=== PATIENT | male | born 1960 | race African-American/Black ===

== ENCOUNTER 2018-06-29 07:25 | Inpatient (IN) | payer OTHER ==
[~2018-06-29] VITALS: Ht 185.4 cm; Wt 121.7 kg
[2018-06-29] VITALS (10 sets, daily range): BP systolic 120–153; BP diastolic 71–100
[~2018-06-29 07:25] MED LIST: AMITRIPTYLINE H25 MG ORAL; HYDROCHLOROTHIA25 MG ORAL; LOSARTAN POTASS25 MG ORAL; LYRICA75 M1 ORAL; OXYCONTIN20 MG ORAL; PERCOCET 10-321 EACH ORAL
--- NOTE | 2018-06-29 08:10 | Pre-Procedure Note/Attestation ---
Pre-Procedure Note/Attestation Complete Prior to Procedure Procedure Narrative: c567 acdf with partial corpectomies Indications for Procedure Pre-Operative Diagnosis: cervical discopathy with myelopathy Attestation I attest that I discussed the nature of the procedure; its benefits; risks and complications; and alternatives (and the risks and benefits of such alternatives ), prior to the procedure, with the patient (or the patient's legal business services representative). I attest that, if there was a reasonable possibility of needing a blood transfusion, the patient (or the patient's legal business services representative) was given the [facility] standardized written summary, pursuant to the Camilo Yeimy Blood Safety Act ([place] Health and Safety Code # 1645, as amended). I attest that I re-evaluated the patient just prior to the surgery and that there has been no change in the patient's H&P, except as documented below: Isaiah Velasco MD Jun 29, 2018 08:10
[2018-06-29] MEDS ORDERED: LIPITOR40 MG ORAL (08:42)
[2018-06-29] MEDS ORDERED: QUETIAPINE FUMA25 MG ORAL (08:43)
[2018-06-29] MEDS ORDERED: MIRTAZAPINE30 MG ORAL (08:44)
[2018-06-29] MEDS ORDERED: WELLBUTRIN XL150 MG ORAL (08:44)
[2018-06-29] MEDS ORDERED: ALBUTEROL SULF8.5 GM INH (08:45)
[2018-06-29] MEDS ORDERED: LR 1000ml 1,000 ML IVLG SCH (10:18)
--- NOTE | 2018-06-29 10:18 | Anethesia Preoperative Eval ---
Anesthesia Pre-op PMH/ROS General Date of Evaluation: Jun 29, 2018 Anesthesiologist: Liang ASA Score: ASA 3 Mallampati Score Class I : Soft palate, uvula, fauces, pillars visible Class II: Soft palate, uvula, fauces visible Class III: Soft palate, base of uvula visible Class IV: Only hard plate visible Mallampati Classification: Class III Surgeon: Rod Diagnosis: Cervical radiculopathy Surgical Procedure: ACDF wtih partial corpectomy C5-6, C6-7 Anesthesia History: none Family History: no anesthesia problems Allergies: Coded Allergies: ACETAMINOPHEN (Verified Allergy, Severe, rash, 06/28/18) AMOXICILLIN (Verified Allergy, Severe, rash, 06/28/18) BACITRACIN (Verified Allergy, Severe, rash, 06/28/18) CODEINE (Verified Allergy, Severe, rash, 06/28/18) HYDROCODONE (Verified Allergy, Severe, rash, 06/28/18) NEOMYCIN (Verified Allergy, Severe, rash, 06/28/18) PENICILLINS (Verified Allergy, Severe, rash, 06/28/18) POLYMYXIN B (Verified Allergy, Severe, rash, 06/28/18) Medications: see eMAR Past Medical History Cardiovascular: Reports: HTN, other - HLD; Denies: CAD, NV, valve dz, arrhythmia Pulmonary: Reports: asthma; Denies: COPD, SNEHA, other Gastrointestinal/Genitourinary: Reports: other - BPH; Denies: GERD, CRI, ESRD Neurologic/Psychiatric: Reports: depression/anxiety, other - SCI; Denies: dementia, CVA, TIA Endocrine: Denies: DM, hypothyroidism, steroids, other HEENT: Denies: cataract (L), cataract (R), glaucoma, QAGAN TAYAGUNGIN (L), QAGAN TAYAGUNGIN (R), other Hematology/Immune: Denies: anemia, DVT, bleeding disorder, other Musculoskeletal/Integumentary: Denies: OA, RA, DJD, DDD, edema, other Other: obesity PSxH Narrative: lumbar sx X2 Anesthesia Pre-op Phys. Exam Physician Exam Last Vital Signs Date Time Temp Pulse Resp B/P (MAP) Pulse Ox O2 Delivery O2 Flow Rate FiO2 06/29/18 08:23 Room Air 06/29/18 08:22 98.0 88 20 144/86 (105) 96 98.0 Constitutional: NAD Cardiovascular: RRR Respiratory: CTA Airway Exam Mallampati Score: Class III MO: full ROM: limited Teeth: intact Anesthesia Pre-op A/P Labs see chart Studies Pre-op Studies: EKG - sr Risk Assessment & Plan Assessment: ASA III Plan: GA Status Change Before Surgery: No Pre-Antibiotics Drug: Clindamycin 600mg Given Within 1 Hr of Incision: Yes Nicole Fernandez MD Jun 29, 2018 10:18
[2018-06-29] MEDS ORDERED: Labetalol 5mg/ml 20ml vial IV PRN (10:30)
[2018-06-29] MEDS ORDERED: LORazepam Inj 2mg/ml 1ml IV PRN (10:30)
[2018-06-29] MEDS ORDERED: Metoclopramide 10mg/2ml Inj IVP PRN ×2 (10:30→15:15)
[2018-06-29] MEDS ORDERED: Midazolam 2mg/2ml Inj IVP PRN (10:30)
[2018-06-29] MEDS ORDERED: DiphenhydrAMINE 50mg/ml Inj IVP PRN (10:30)
[2018-06-29] MEDS ORDERED: fentaNYL 100 mcg/2 mL IV PRN (10:30)
[2018-06-29] MEDS ORDERED: Thrombin 5000 units spray kit TOPIC ONE (11:31)
[2018-06-29] MEDS ORDERED: Thrombin 5000 units TOPIC ONE (11:31)
[2018-06-29] MEDS ORDERED: EPINEPHrine 1mg/1ml Amp ONE (11:31)
[2018-06-29] MEDS ORDERED: Bupivacaine 0.5% Inj 30 ml vial INJ ONE (11:32)
[2018-06-29] MEDS ORDERED: Gelfoam Absorbable 1gm powder pkt TOPIC ONE (11:32)
[2018-06-29] MEDS ORDERED: Lidocaine 1% 10mg/ml/Epi 0.005mg/ml 30ml vial INJ ONE (11:33)
[2018-06-29] MEDS ORDERED: Bacitracin 50000 Units Vial ONE (11:33)
[2018-06-29] MEDS ORDERED: Gelfoam Size TOPIC ONE ×2 (11:33→15:45)
[2018-06-29] MEDS ORDERED: Clindamycin 600mg 50 ML IV ONE (11:45)
[2018-06-29] MEDS ORDERED: Lidocaine 1% MPF 10mg/ml 5ml ONE (11:48)
[2018-06-29] MEDS ORDERED: Propofol 200mg/20ml IV ONE ×2 (11:48→15:05)
[2018-06-29] MEDS ORDERED: fentaNYL 100 mcg/2 mL IV ONE ×2 (11:48→11:49)
[2018-06-29] MEDS ORDERED: Dexamethasone 4mg/ml vial ONE (11:56)
[2018-06-29] MEDS ORDERED: Metoclopramide 10mg/2ml Inj ONE (11:56)
[2018-06-29] MEDS ORDERED: NS Irrig 1000ml ONE (12:00)
[2018-06-29] MEDS ORDERED: Propofol 1,000mg/ 100ml btl IV ONE (12:00)
[2018-06-29] MEDS ORDERED: Sterile Water Irrig 1000ml IRRIG ONE (12:00)
[2018-06-29] MEDS ORDERED: LR 1000ml ONE (12:00)
[2018-06-29] MEDS ORDERED: Milk of Magnesia 30ml Ud ORAL PRN ×2 (15:15→19:30)
--- NOTE | 2018-06-29 15:24 | Brief Operative Note ---
Immediate Post Operative Note Operative Note Pre-op Diagnosis: cervical discopathy with myelopathy Procedure: C567 acdf, c6 partial corpectomy Post-op Diagnosis: same as pre-op Findings: consistent w/pre-op dx studies Surgeon: dada Insulation Applicator: keo Anesthesiologist: claire newberry Anesthesia: general Specimen: none Complications: none Condition: stable Fluids: 2000 Estimated Blood Loss: minimal Drains: hemovac Implant(s) used?: Yes - 4 web cage and shelby plate Isaiah Velasco MD Jun 29, 2018 15:24
--- NOTE | 2018-06-29 15:45 | Immediate Post-Op Evaluation ---
Immediate Post-Op Evalulation Immediate Post-Op Evalulation Procedure: ACDF with partial corpectomy C5-7 Date of Evaluation: Jun 29, 2018 Time of Evaluation: 15:43 IV Fluids: 2L Blood Products: 0 Estimated Blood Loss: min Urinary Output: 300 Blood Pressure Systolic: 120 Blood Pressure Diastolic: 77 Pulse Rate: 91 Respiratory Rate: 17 O2 Sat by Pulse Oximetry: 99 Temperature (Fahrenheit): 97.3 Pain Score (1-10): 0 Nausea: No Vomiting: No Complications 0 Patient Status: awake, reacts, patent, none Hydration Status: adequate Drug: Clindamycin 600mg Given Within 1 Hr of Incision: Yes Time Given: 12:15 Nicole Fernandez MD Jun 29, 2018 15:45
--- NOTE | 2018-06-29 17:07 | Diagnostic Imaging Report ---
Indication: Intraoperative imaging, neck pain Technique: Intraoperative images Comparison: 07/15/2016 Findings: Intraoperative images demonstrate a needle projected anterior to what is presumably the C6-7 disc. Subsequent images document fusion hardware and disc spacers bridging C5-C7 Impression: Intraoperative imaging, as described.
[2018-06-29] MEDS: Docusate 100mg cap ORAL SCH ×2 (18:00→18:30)
[2018-06-29] MEDS: D5 1/2NS 1,000 ML IV SCH ×2 (18:26→23:30)
[2018-06-29] MEDS: Clindamycin 600mg 50 ML IV SCH ×2 (18:28→23:30)
[2018-06-29] MEDS ORDERED: Chloraseptic Spray 20mL Bottle ORAL ONE (19:16)
[2018-06-29] MEDS ORDERED: oxyCODONE 5mg IR tab ORAL PRN (19:30)
[2018-06-29] MEDS ORDERED: Chloraseptic Spray 20mL Bottle ORAL PRN (19:30)
[2018-06-29] MEDS ORDERED: Magnesium Citrate Liq Btl ORAL PRN ×2 (19:30→19:45)
[2018-06-29] MEDS ORDERED: Albuterol 90mcg Inhaler 8gm INH PRN (20:00)
[2018-06-29] MEDS: Atorvastatin 20mg tab ORAL SCH (20:03)
[2018-06-29] MEDS: Losartan 25mg tab ORAL SCH (20:11)
[2018-06-29] MEDS: HYDROmorphone 1mg/ml Carpuject SUBQ PRN (20:11)
[2018-06-29] MEDS: oxyCONTIN 10mg tab ORAL SCH (21:26)
[2018-06-30] VITALS: BP 144/97
[2018-06-30] MEDS ORDERED: Albuterol ud Inhalation HHN PRN (01:00)
[2018-06-30] MEDS: oxyCODONE 15mg IR tab ORAL PRN ×2 (01:46→06:30)
[2018-06-30] MEDS: HYDROmorphone 1mg/ml Carpuject SUBQ PRN ×5 (03:58→21:11)
[2018-06-30 04:00] VITALS: BP 119/73
[2018-06-30] MEDS: Clindamycin 600mg 50 ML IV SCH ×2 (05:07→11:37)
--- NOTE | 2018-06-30 05:17 | Consultation ---
DATE OF CONSULTATION: 06/29/2018 CONSULTING PHYSICIAN: Rafita Tejeda M.D. REFERRING PHYSICIAN: Isaiah Velasco M.D. REASON FOR CONSULTATION: Acute pain consult. HISTORY OF PRESENT ILLNESS: Dear Dr. Isaiah Velasco, Thank you kindly for consulting me to evaluate and render an opinion as to how to proceed in the management of the patient's acute postoperative multiple level cervical spine fusion surgery pain. The patient is a 58-year-old gentleman who injured his neck while working at the [employer]. He has had a work injury for nearly five years and has been on escalating doses of oxycodone with his outpatient pain doctor, Dr. Sanchez in [place], [place], with whom he sees monthly. The patient has been using 10 Percocets daily for many years and with his chronic opioid dependence, complained of severe pain postoperatively. I saw the patient on your request to help with the patient's opioid dependent refractory pain complaints. PAST MEDICAL HISTORY: 1. Acute postoperative cervical spine pain, status post cervical spine fusion surgery with instrumentation by Dr. Isaiah Velasco in 06/2018. 2. Work-related injury. 3. Opioid dependence. 4. Chronic pain syndrome. 5. Severe insomnia. 6. Hypertension. 7. Hypercholesterolemia. 8. Depression. 9. Obesity. PAST SURGICAL HISTORY: Multiple lumbar spine surgeries, posterior cervical spine surgery in 07/[address] Isaiah Velasco. MEDICATIONS: At home, Percocet 10/325 mg two tablets at a time five times per day, Elavil 25 mg daily, albuterol, Remeron, Seroquel, losartan 50 mg daily, Wellbutrin extended release 150 mg daily, and Lipitor. FAMILY HISTORY: Suicide by oldest brother. SOCIAL HISTORY: The patient works at the [employer]. The patient denies tobacco, alcohol, or marijuana usage. He is accompanied at the bedside by his daughter and his . REVIEW OF SYSTEMS: Per Dr. Bobby Pantoja. PHYSICAL EXAMINATION: HEENT: Alex collar in place. NECK: Dressing appears clean and dry with Hemovac drain holding suction. LUNGS: The patient is breathing comfortably with no accessory muscle use. The patient appears non-toxic. EXTREMITIES: Moving all extremities x4 with 5/5 dorsiflexion and 5/5 plantar flexion in the bilateral lower extremities. NEUROLOGIC: Detailed neurologic exam per Dr. Velasco. CHEST: Barrel chested. HEART: Regular rate and rhythm. Positive S4. Normal S1, S2. No S3 appreciated. ABDOMEN: Positive obesity. Positive bowel sounds. No rebound or guarding. GENITOURINARY: Deferred. LABORATORY AND DIAGNOSTIC DATA: Diagnostic testing shows glucose 102, sodium 138, potassium 3.9, chloride 105, bicarbonate 26, BUN 12, creatinine 1.2, and calcium 9.2. Total protein 7.3, albumin 4.1. AST 24, ALT 22, alkaline phosphatase 87, and total bilirubin 0.7. TSH 1.7. Glycosylated hemoglobin high normal at 6.4. White count 5, hematocrit 41, and platelets 235,000. INR 1.2, PTT 25. A 12-lead EKG shows sinus rhythm at 67 heart rate. Preoperative chest x-ray shows no acute cardiopulmonary disease. IMPRESSION: 1. Acute postoperative cervical spine pain, status post cervical spine fusion surgery with instrumentation by Dr. Isaiah Velasco in 06/2018. 2. Work-related injury. 3. Opioid dependence. 4. Chronic pain syndrome. 5. Severe insomnia. 6. Hypertension. 7. Hypercholesterolemia. 8. Depression. 9. Obesity. TREATMENT AND RECOMMENDATIONS: The patient is opioid dependent. He has been on high-dose oxycodone for many years. The patient follows up with Dr. Sanchez in [place], [place] on a monthly basis. With the patient's chronic usage of 10 Percocet tablets daily, I did recommend that the patient ask his outpatient pain doctor to switch him over to oxycodone to avoid the chronic high doses of Tylenol, which he has been taking. The states that Dr. Sanchez has been discussing using OxyContin on this patient, which I agree is appropriate with his chronic oxycodone instant release usage. The patient does have multiple allergies, but with good tolerance for oxycodone, I believe he should be able to tolerate extended release OxyContin, which I will start with 10 mg this evening. I spoke with the hospital pharmacist, Kerrie, to initiate this medication. In the hospital setting, we have the opportunity to use oxycodone without Tylenol, so I have ordered oxycodone instant release because the patient has been using 20 mg chronically. I have selected a dose of 30 mg instant release orally every three hours p.r.n. for moderate pain. I also ordered a breakthrough dose of subcutaneous Dilaudid 1 mg every three hours p.r.n. for severe pain. Due to his obesity, I recommended subcutaneous route, which also should have less emetogenic effect. I have asked the nursing team to place Chloraseptic spray at the bedside to help with sore throat complaints. I have ordered Fioricet for any headache complaints at a dose of one tablet orally every eight hours p.r.n. The patient has listed multiple insomnia agents including Elavil, Seroquel. I have changed it over to p.r.n. to avoid oversedation. The patient does probably use losartan for blood pressure. I have split the dose to a twice a day dosing with hold parameters for systolic blood pressure less than 130 mmHg. I have also added p.r.n. dose of clonidine until the hospitalist can adjust his hypertensive medications. The patient denies any shortness of breath at this time. I have ordered q.6 hour dosing of albuterol nebulizer in case of any shortness of breath complaints. I have ordered Benadryl 25 mg every six hours in case of any itching complaints. I have ordered Zofran as a rescue antiemetic at a dose of 4 mg every four hours p.r.n. I will empirically place the patient on Protonix 40 mg nightly for GI ulcer prophylaxis along with p.r.n. dose of Mylanta 30 mL q.6 hours in case of any GERD symptom exacerbation. I have ordered incentive spirometer in this patient to encourage good pulmonary toilet. I will defer DVT prophylaxis to the surgeon. Rafita Tejeda M.D. DR: SANDY JOB#: [id number] CC:
[2018-06-30 08:00] VITALS: BP 119/74
[2018-06-30] MEDS: BuPROPion XL 150mg tab ORAL SCH (08:32)
[2018-06-30] MEDS: Docusate 100mg cap ORAL SCH ×2 (08:32→17:38)
[2018-06-30] MEDS: oxyCONTIN 10mg tab ORAL SCH ×3 (08:33→22:15)
--- NOTE | 2018-06-30 08:45 | Orthopedic Spine Progress Note ---
Ortho Spine - Progress Note Subjective Symptoms: c/o post-op neck pain, improved - as compared to pre-op in arms, but same in legs Objective Vital Signs: Last 24 Hour Vital Signs Date Time Temp Pulse Resp B/P (MAP) Pulse Ox O2 Delivery O2 Flow Rate FiO2 06/30/18 08:33 98.1 06/30/18 08:33 98.1 06/30/18 04:00 98.1 84 18 119/73 (88) 93 98.1 06/30/18 00:00 98.8 96 18 144/97 (113) 94 98.8 06/29/18 21:00 Room Air 06/29/18 20:11 142/87 06/29/18 20:00 100.3 109 18 153/100 (117) 95 100.3 06/29/18 16:56 98.5 06/29/18 16:55 98.5 88 18 142/87 100 Nasal Cannula 3 98.5 06/29/18 16:40 95 18 137/88 100 Nasal Cannula 3 06/29/18 16:26 86 18 142/98 100 Nasal Cannula 3 06/29/18 16:26 98.0 06/29/18 16:15 92 18 144/81 100 Simple Mask 8 06/29/18 16:00 97 18 138/71 100 Simple Mask 8 06/29/18 15:48 97 18 123/82 100 Simple Mask 8 06/29/18 15:45 207.1 91 17 99 06/29/18 15:43 91 18 124/78 100 Simple Mask 8 06/29/18 15:38 97.3 91 18 120/77 100 Simple Mask 8 97.3 I&O: Intake and Output 06/29/18 06/30/18 19:00 07:00 Intake Total 2400 ml 1700 ml Output Total 300 ml 0 ml Balance 2100 ml 1700 ml Intake Oral 600 ml IV Total 2400 ml 1100 ml Output Urine Total 300 ml Drainage Total 0 ml # Voids 1 3 Wound: clean Drains: hemovac Neuro Status: unchanged from pre-op Assessment Procedure Performed: C567 acdf, c6 partial corpectomy Plan Plan: PT, d/c drain, discharge plan Isaiah Velasco MD Jun 30, 2018 08:45
[2018-06-30] MEDS: Losartan 25mg tab ORAL SCH ×2 (09:00→21:00)
--- NOTE | 2018-06-30 09:37 | 48 Hour Post Anesthesia Eval ---
Post Anesthesia Evaluation Procedure: ACDF with partial corpectomy C5-7 Date of Evaluation: Jun 30, 2018 Airway: patent Nausea: No Vomiting: No Pain Intensity: 2 Hydration Status: adequate Cardiopulmonary Status: at baseline Mental Status/LOC: patient returned to baseline Post-Anesthesia Complications: 0 Follow-up care needed: N/A - further care as per primary team Nicole Fernandez MD Jun 30, 2018 09:37
[2018-06-30] MEDS: D5 1/2NS 1,000 ML IV SCH (11:15)
--- NOTE | 2018-06-30 11:45 | History and Physical ---
History of Present Illness General Date patient seen: Jun 30, 2018 Present Illness HPI 58 year old male with hx of depression, hypertension, asthma, and cervical discopathy with myelopathy presented for C567 acdf, c6 partial corpectomy. After surgery she is admitted to surgical floor for post op care. Allergies: Coded Allergies: ACETAMINOPHEN (Verified Allergy, Severe, rash, 06/28/18) AMOXICILLIN (Verified Allergy, Severe, rash, 06/28/18) BACITRACIN (Verified Allergy, Severe, rash, 06/28/18) CODEINE (Verified Allergy, Severe, rash, 06/28/18) HYDROCODONE (Verified Allergy, Severe, rash, 06/28/18) NEOMYCIN (Verified Allergy, Severe, rash, 06/28/18) PENICILLINS (Verified Allergy, Severe, rash, 06/28/18) POLYMYXIN B (Verified Allergy, Severe, rash, 06/28/18) Medication History Scheduled Amitriptyline Hcl* (Amitriptyline Hcl*), 75 MG ORAL BEDTIME, (Reported) Atorvastatin Calcium* (Lipitor*), 40 MG ORAL BEDTIME, (Reported) Bupropion Hcl* (Wellbutrin Xl*), 150 MG ORAL DAILY, (Reported) Losartan Potassium* (Losartan Potassium*), 50 MG ORAL DAILY, (Reported) Mirtazapine* (Remeron*), 30 MG ORAL BEDTIME, (Reported) Quetiapine Fumarate* (Seroquel*), 25 MG ORAL DAILY, (Reported) Scheduled PRN Albuterol Sulfate* (Albuterol Sulfate Mdi*), 2 PUFF INH PRN PRN for Shortness of Breath, (Reported) Miscellaneous Medications Oxycodone Hcl Er* (Oxycontin*), 20 MG ORAL, (Reported) Discontinued Medications Oxycodone Hcl/Acetaminophen 10-325 Mg Tablet (Percocet 10-325 Mg Tablet*), 1 TAB ORAL Q6H PRN for For Pain, (Reported) Discontinued Reason: MD discontinued med Patient History Healthcare decision maker Resuscitation status Full Code Advanced Directive on File n/a Past Medical/Surgical History Past Medical/Surgical History: (1) History of hypertension (2) Depression (3) History of asthma Review of Systems All Other Systems: negative except mentioned in HPI Physical Exam General Appearance: WD/WN Lines, tubes and drains: peripheral HEENT: normocephalic, atraumatic Neck: non-tender, normal alignment Respiratory/Chest: chest wall non-tender, lungs clear, no respiratory distress Cardiovascular/Chest: normal peripheral pulses Abdomen: normal bowel sounds Genitourinary/Rectal: normal genital exam Extremities: normal range of motion Last 24 Hour Vital Signs Date Time Temp Pulse Resp B/P (MAP) Pulse Ox O2 Delivery O2 Flow Rate FiO2 06/30/18 11:33 98.1 06/30/18 09:03 98.1 06/30/18 09:00 Room Air 06/30/18 09:00 118/74 06/30/18 08:33 98.1 06/30/18 08:33 98.1 06/30/18 08:00 98.5 81 21 119/74 (89) 96 98.5 06/30/18 04:00 98.1 84 18 119/73 (88) 93 98.1 06/30/18 00:00 98.8 96 18 144/97 (113) 94 98.8 06/29/18 21:00 Room Air 06/29/18 20:11 142/87 06/29/18 20:00 100.3 109 18 153/100 (117) 95 100.3 06/29/18 16:56 98.5 06/29/18 16:55 98.5 88 18 142/87 100 Nasal Cannula 3 98.5 06/29/18 16:40 95 18 137/88 100 Nasal Cannula 3 06/29/18 16:26 86 18 142/98 100 Nasal Cannula 3 06/29/18 16:26 98.0 06/29/18 16:15 92 18 144/81 100 Simple Mask 8 06/29/18 16:00 97 18 138/71 100 Simple Mask 8 06/29/18 15:48 97 18 123/82 100 Simple Mask 8 06/29/18 15:45 207.1 91 17 99 06/29/18 15:43 91 18 124/78 100 Simple Mask 8 06/29/18 15:38 97.3 91 18 120/77 100 Simple Mask 8 97.3 Intake and Output 06/29/18 06/30/18 19:00 07:00 Intake Total 2400 ml 1700 ml Output Total 300 ml 0 ml Balance 2100 ml 1700 ml Intake Oral 600 ml IV Total 2400 ml 1100 ml Output Urine Total 300 ml Drainage Total 0 ml # Voids 1 3 Height (Feet): 6 Height (Inches): 1.00 Weight (Pounds): 268 Medications Current Medications Medications (Trade) Dose Ordered Sig/Bonnie Route PRN Reason Start Time Stop Time Status Last Admin Dose Admin Acetaminophen (Tylenol) 650 mg Q6H PRN ORAL Mild Pain/Temp > 100.5 06/29/18 20:00 07/29/18 19:59 Acetaminophen/ Butalbital/ Caffeine (Fioricet) 1 tab Q8H PRN ORAL headache 06/29/18 19:30 07/29/18 19:29 Al Hydroxide/Mg Hydroxide (Mylanta) 30 ml Q6H PRN ORAL gerd 06/29/18 19:30 07/29/18 19:29 Albuterol Sulfate (Proventil MDI) 2 puff Q4H PRN INH shortness of breath 06/29/18 20:00 07/29/18 19:59 Albuterol Sulfate (Proventil) 2.5 mg Q6HRT PRN HHN shortness of breath 06/30/18 01:00 07/05/18 00:59 Amitriptyline HCl (Elavil) 25 mg BEDTIME PRN ORAL insomnia 06/29/18 21:00 07/29/18 20:59 Atorvastatin Calcium (Lipitor) 40 mg BEDTIME ORAL 06/29/18 21:00 07/29/18 20:59 06/29/18 20:03 Atorvastatin Calcium (Lipitor) 40 mg BEDTIME ORAL 06/30/18 21:00 07/30/18 20:59 Bupropion HCl (Wellbutrin XL) 150 mg DAILY ORAL 06/30/18 09:00 07/30/18 08:59 06/30/18 08:32 Clindamycin HCl/ Dextrose 50 ml @ 50 mls/hr EVERY 6 HOURS IV 06/29/18 18:00 06/30/18 12:59 06/30/18 05:07 Clonidine HCl (Catapres Tab) 0.1 mg Q8H PRN ORAL For High Blood Pressure 06/29/18 19:30 07/29/18 19:29 Dextrose/Sodium Chloride 1,000 ml @ 100 mls/hr Q10H IV 06/29/18 15:15 07/29/18 15:14 06/29/18 23:30 Diphenhydramine HCl (Benadryl) 25 mg Q6H PRN ORAL Itching 06/29/18 19:30 07/29/18 19:29 Docusate Sodium (Colace) 100 mg TWICE A DAY ORAL 06/29/18 18:00 07/29/18 17:59 06/30/18 08:32 Hydromorphone HCl (Dilaudid) 1 mg Q3H PRN SUBQ Severe Breakthru Pain (>7) 06/29/18 19:30 07/06/18 19:29 06/30/18 11:33 Losartan Potassium (Cozaar) 25 mg Q12H ORAL 06/29/18 21:00 07/29/18 20:59 06/29/18 20:11 Magnesium Hydroxide (Mom) 30 ml DAILYPRN PRN ORAL Constipation 06/29/18 19:30 07/29/18 19:29 Magnesium Citrate (Citrate Of Magnesia) 300 ml Q12HR PRN ORAL refractory constipation 06/29/18 19:45 07/29/18 19:29 Mirtazapine (Remeron) 30 mg BEDTIME PRN ORAL severe insomnia 06/29/18 21:00 07/29/18 20:59 Ondansetron HCl (Zofran) 4 mg Q4H PRN IVP Nausea & Vomiting 06/29/18 19:30 07/29/18 19:29 Oxycodone HCl (OxyCONTIN) 10 mg Q12HR ORAL 06/29/18 21:00 07/06/18 20:59 06/30/18 08:33 Oxycodone HCl (Roxicodone) 30 mg Q3H PRN ORAL Moderate Breakthru Pain (5-7) 06/29/18 19:45 07/06/18 19:44 06/30/18 06:30 Pantoprazole (Protonix) 40 mg BEDTIME ORAL 06/29/18 21:00 07/29/18 20:59 06/29/18 20:03 Phenol/Menthol (Chloraseptic) 1 spray Q3H PRN ORAL sore throat 06/29/18 19:30 07/29/18 19:29 06/29/18 20:37 Quetiapine Fumarate (SEROquel) 25 mg BEDTIME PRN ORAL refractory insomnia 06/29/18 21:00 07/29/18 20:59 06/29/18 23:25 Terazosin HCl (Hytrin) 5 mg TID ORAL 06/30/18 13:00 07/30/18 12:59 Assessment/Plan Problem List: (1) Cervical myelopathy with cervical radiculopathy ICD Codes: M47.12 - Other spondylosis with myelopathy, cervical region SNOMED: 422852101 (2) Depression ICD Codes: F32.9 - Major depressive disorder, single episode, unspecified SNOMED: 43506324 (3) History of asthma ICD Codes: Z87.09 - Personal history of other diseases of the respiratory system SNOMED: 775479521 (4) History of hypertension ICD Codes: Z86.79 - Personal history of other diseases of the circulatory system SNOMED: 184194313 Assessment/Plan pain management symptomatic treatment resume antidepressants dvt prophylaxis/ Renan Hunt MD Jun 30, 2018 11:45
[2018-06-30 12:00] VITALS: BP 117/71
[2018-06-30] MEDS ORDERED: Chloraseptic Spray 20mL Bottle ORAL ONE (14:48)
[2018-06-30] MEDS: Chloraseptic Spray 20mL Bottle ORAL PRN (15:13)
[2018-06-30 16:00] VITALS: BP 134/95
[2018-06-30 20:00] VITALS: BP 117/76
[2018-06-30] MEDS ORDERED: Atorvastatin 20mg tab ORAL SCH (21:00)
[2018-06-30] MEDS ORDERED: Atorvastatin 80mg tab ORAL SCH (21:00)
[2018-06-30] MEDS: Atorvastatin 20mg tab ORAL SCH (21:10)
--- NOTE | 2018-06-30 22:30 | Progress Note ---
DATE: 06/30/2018 ACUTE PAIN MANAGEMENT PHYSICIAN PROGRESS NOTE MEDICATIONS: Medication administration record reviewed. Medications include Hytrin, Seroquel, Chloraseptic spray, Protonix, OxyContin, Zofran, Remeron, milk of magnesia, magnesium citrate, Cozaar, Dilaudid, Colace, Benadryl, Catapres, Wellbutrin, Lipitor, Elavil, Proventil, metered-dose inhaler, Mylanta, and Fioricet. LABORATORY STUDIES: No interval laboratory studies. OBJECTIVE: VITAL SIGNS: Afebrile, pulse 75, respirations 20, blood pressure 117/71, and oxygen saturation 94% on room air. I saw the patient at the bedside with his and the nurse RN, Roxie. Dr. Velasco, Surgery evaluated the patient earlier this morning and removed his indwelling cervical spine drain catheter. The patient has been out of bed ambulating. The patient is having improved sensation in his feet compared to preop. The patient has good motor strength in the upper extremities and has been ambulating out of bed with physical therapy. The Chloraseptic spray has been helpful. The patient did tolerate the oxycodone instant release 30 mg earlier this morning without oversedation. The patient did tolerate his OxyContin 10 mg earlier this morning. I spoke with the hospital pharmacist, Kerrie, to increase the frequency from q.12 hours to q.8 hours on the OxyContin 10 mg. We will see how the patient is progressing tomorrow to determine if he is a discharge candidate or needs another day in the hospital on these high dose opioid narcotics. Dr. Hunt is following the patient for medical issues. We will advance the patient's diet as tolerated. Rafita Tejeda M.D. DR: HEATHER JOB#: [id number] CC:
[2018-07-01 00:16] VITALS: BP 131/79
[2018-07-01] MEDS: HYDROmorphone 1mg/ml Carpuject SUBQ PRN (04:05)
[2018-07-01 04:31] VITALS: BP 133/85
--- NOTE | 2018-07-01 04:46 | Operative Note - Dictated ---
DATE OF OPERATION: 06/29/2018 SURGEON: Isaiah Velasco M.D. STAFF DEVELOPMENT NURSE SURGEON: Faheem Cotter M.D. ANESTHESIA: Nicole Tavera M.D. ANESTHESIA TYPE: General endotracheal anesthesia. 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 PROCEDURE: 1. Wide and radical diskectomy, C5-C6 and C6-C7. 2. Partial corpectomy, superior portion of C6 with removal of large bony prominence compressing the spinal cord. 3. Placement of interbody fusion device (4WEB). 4. Use of local autograft and allograft (Signafuse). 5. Anterior instrumentation with cervical plate, C5, C6, and C7. 6. Use of fluoroscopy. 7. Neurodiagnostic monitoring. 8. Use of operating microscope. INDICATIONS: The patient is a very pleasant gentleman who sustained a significant injury to his neck with progressive myeloradiculopathic findings as well as balance disturbance and weakness in the lower extremities primarily, but also weakness in the upper extremities. The patient did have manual dexterity loss of the upper extremities. Surgical intervention was recommended based on the severe nature of the compression, primarily at C5-C6 centrally as well as foraminally at C6-C7. The patient was explained in detail risks and benefits of surgery to include but not be limited to those of bleeding, infection, damage to nerves or vessels or tendons, anesthetic risk, allergic reaction, aspiration, possibly . The patient understood and wished to proceed. OPERATIVE PROCEDURE IN DETAIL: The patient was taken to the operating suite. After general endotracheal anesthesia was obtained, Ortiz catheter was placed. He was positioned supine onto a radiolucent table. Multiple passes with x-ray were attempted, however, very poor visualization could be obtained due to the patient's body habitus. We were able to count down to C5, however, the details of the interspace at C5-C6, C6-C7 could not be visualized. This made the surgery far more complicated as the procedure would have to then be done without benefit of fluoroscopic imaging for fine details of anatomic fixation, but rather for gross localization purposes only. At this point, an incision was marked out transversely at or about C6 on the right side of the neck. The neck was prepped and draped in the usual sterile fashion. Skin was infiltrated with Marcaine with epinephrine. The incision was sharply carried down through the subcutaneous tissue. Very large platysma was identified and this was split perpendicular to the fibers. Blunt dissection medial to the sternocleidomastoid was carried out. The carotid was palpated and medial dissection using digital dissection allowed for exposure of the prevertebral fascia. Self-retaining retractors were put in place. A needle was placed and was felt to be the C5-C6 level and this was radiographically confirmed. At this point, self-retaining retractors were put in place. [place] posts were placed into C5 and C6. The disk was incised. The disk was removed with combination of scalpel, curettes, pituitaries. Copious irrigation was performed. Dissection was carried out to the posterior aspect of the vertebral body under microscopic visualization. Posterior osteophytes were drilled out with high-speed drill. At this point, mild intradiscal distraction was obtained using a 6 mm spacer. At this point, visualization of the posterior longitudinal ligament was made. The PLL and the posterior anulus were then resected. The cord was identified and dissection and decompression from neuroforamen on the right to the neuroforamen on the left was achieved. There was noted to be a large central calcified mass, either disk herniation versus calcified PLL. A more-than normal central corpectomy was required in order to remove the area of central cord compression. Once this was achieved, the appropriate-sized interbody spacer was trialed and a 4WEB device was centrally packed with Signafuse as well as local autograft bone graft. Once this was inserted into place, the [place] post was removed from C5 and placed into C7. In an identical fashion, wide and radical diskectomy was achieved all the way down to the posterior longitudinal ligament which was resected and the exposure of the spinal cord was obtained with central decompression as well as decompression of the neuroforamen bilaterally using the standard technique as previously outlined. At this point, the appropriate-sized spacer was measured and the 4WEB device was centrally packed with Signafuse and local autograft which was harvested from the prior corpectomy at the C6 level. Once the bone graft and spacer was applied, the appropriate-sized plate was chosen. Please note that due to the fact that appropriate fluoroscopic images could not be obtained, we elected to apply 14 mm screws at C6 and C7 and 16 mm screws at C5 (which still could be visualized). Excellent bony fixation was achieved. Copious irrigation was then performed. Due to the patient's large body habitus and the space and extensive bony work, medium-sized Hemovac drain was placed deep to the fascia. The longus colli was also bipolar'd as there were bleeding edges from the longus colli. At this point, once satisfied with the hemostasis, copious irrigation was performed. Drain once again was placed in the retropharyngeal space. Platysma was repaired using 3-0 Vicryl, subcutaneous tissue closure using 4-0 Vicryl. Dermabond was applied. Sterile dressing was applied. The patient overall tolerated the procedure well, was awakened, extubated, and transferred to recovery room in stable condition. Isaiah Velasco M.D. DR: Simin JOB#: [id number] CC:
[2018-07-01] MEDS: oxyCONTIN 10mg tab ORAL SCH (05:21)
[2018-07-01] MEDS: oxyCODONE 15mg IR tab ORAL PRN (06:18)
[2018-07-01] MEDS: Chloraseptic Spray 20mL Bottle ORAL PRN ×2 (06:20→11:08)
[2018-07-01 08:00] VITALS: BP 125/79
--- NOTE | 2018-07-01 08:08 | Orthopedic Spine Progress Note ---
Ortho Spine - Progress Note Subjective Symptoms: c/o post-op neck pain, improved - as compared to pre-op Objective Vital Signs: Last 24 Hour Vital Signs Date Time Temp Pulse Resp B/P (MAP) Pulse Ox O2 Delivery O2 Flow Rate FiO2 07/01/18 04:31 98.5 87 20 133/85 (101) 94 98.5 07/01/18 00:16 98.5 82 18 131/79 (96) 97 98.5 06/30/18 21:00 117/76 06/30/18 21:00 Room Air 06/30/18 20:00 98.2 87 17 117/76 (90) 97 98.2 06/30/18 19:45 88 18 Room Air 06/30/18 17:34 98.1 06/30/18 17:04 98.1 06/30/18 16:00 98.2 87 18 134/95 (108) 95 98.2 06/30/18 15:13 98.1 06/30/18 12:00 98.2 75 20 117/71 (86) 94 98.2 06/30/18 11:33 98.1 06/30/18 09:00 Room Air 06/30/18 09:00 118/74 06/30/18 08:33 98.1 06/30/18 08:33 98.1 I&O: Intake and Output 06/30/18 07/01/18 19:00 07:00 Intake Total 1380 ml Balance 1380 ml Intake Oral 730 ml IV Total 650 ml # Voids 3 4 Wound: clean Drains: none Neuro Status: other - arms feeling stronger, now new tingling in feet-- before comepletely numb Assessment Procedure Performed: C567 acdf, c6 partial corpectomy Plan Plan: PT, pain management, discharge plan Isaiah Velasco MD Jul 01, 2018 08:08
[2018-07-01] MEDS: Docusate 100mg cap ORAL SCH (08:57)
[2018-07-01] MEDS: BuPROPion XL 150mg tab ORAL SCH (08:57)
[2018-07-01] MEDS: Losartan 25mg tab ORAL SCH (08:58)
[2018-07-01] MEDS ORDERED: BuPROPion XL 150mg tab ORAL SCH (09:00)
[2018-07-01] MEDS ORDERED: Losartan 25mg tab ORAL SCH (09:00)
[2018-07-01] MEDS ORDERED: OXYCONTIN10 MG ORAL (10:17)
[2018-07-01 11:00] VITALS: BP 136/81
--- NOTE | 2018-07-01 16:30 | Progress Note ---
DATE: 07/01/2018 ACUTE PAIN MANAGEMENT PHYSICIAN PROGRESS NOTE MEDICATIONS: Medication administration record reviewed. Medications include Colace, Protonix, Lipitor, Wellbutrin, Cozaar, and OxyContin. P.r.n. medications include Fioricet, Catapres, Zofran, Benadryl, milk of magnesia, Mylanta, Dilaudid, albuterol, magnesium citrate, Elavil, oxycodone, Remeron, Seroquel, Chloraseptic spray, and Tylenol. LABORATORY STUDIES: No interval laboratory studies. OBJECTIVE: VITAL SIGNS: Within normal limits. Afebrile. Pulse 89, respirations 20, blood pressure 125/79, and oxygen saturation 98% on room air. I saw the patient at the bedside with his and the nurse RN, Roxie. I discussed the case with the surgeon, Dr. Velasco. The patient has continued to improve. He tolerated q.8 hour dosing of OxyContin 10 mg without any over sedation. The patient will follow up with his outpatient pain doctor in approximately two weeks. So, I have left a prescription for OxyContin 10 mg controlled release with the quantity of 25, which should last until his follow-up appointment. I decided to change the dosing to q.12 hours for ease of administration, and the patient's outpatient doctor can discuss with the patient if they want to change the milligram dosing or the frequency. The patient already has a good supply of Percocet's at home for breakthrough pain. He has been using the Chloraseptic spray for topical relief with good efficacy. The patient has been able to sleep at-times. He is moving in and out of the bed. He is tolerating advancing diet. He denies any shortness of breath or chest pain. He is using his incentive spirometer and has excellent support with his for activities of daily living. With normal vital signs and an improved clinical condition, I agree with Dr. Velasco for discharge trial home at this time. The patient will follow up with Dr. Velasco in the outpatient surgical clinic for follow up. The patient denies any shortness of breath or chest pain. His neck dressing appears clean and dry with the [place] collar in place. Rafita Tejeda M.D. DR: HEATHER JOB#: [id number] CC:
--- NOTE | 2018-07-02 13:05 | Discharge Summary ---
Discharge Summary Discharge Summary _ DATE OF ADMISSION: 06/29/2018 DATE OF DISCHARGE: 07/01/2018 CONSULTANTS: Dr. Renan Tejeda BRIEF HOSPITAL COURSE: Patient is a 58-year-old gentleman, who injured his neck while working at the [employer] [facility]. He was diagnosed with C5-C6 and C6-C7 discopathy with a large spur osteophyte formation and cord compression resulting in myeloradiculopathy. He sustained a significant injury with progressive myeloradiculopathy findings as well as balance disturbance and weakness in the lower extremity primarily but also weakness in the upper extremities. The patient had dexterity loss of upper extremities. On 06/29/2018, he was admitted and underwent ACDF C5-C6 and C6-C7, with partial corpectomy C6. He tolerated procedure well. He was admitted for postop care and pain management. He was placed on SCDs for DVT prophylaxis and was given incentive spirometry. He was resumed on his antidepressants. He was seen by spray painting machine operator. Patient has been opioid dependent and has been on high doses of oxycodone for many years. He underwent physical therapy. Diet was advanced. He was ambulating well and tolerating diet well. Neck dressing was clean and dry with [place] collar in place. He was eventually cleared for discharge home. 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 DISCHARGE MEDICATIONS: Refer to Discharge Medication List. DISCHARGE INSTRUCTIONS: Follow up within a week. I have been assigned to dictate discharge summary on this account, and I was not involved in the patient's management. Merna Dempsey NP Jul 02, 2018 13:05
== END 2018-07-01 11:15 | disposition home or self-care (01) | DRG 472 ==
LOC: SDSOVERFLO 07:25 → 3E 17:12
PROC: 0RT30ZZ Resection of Cervical Vertebral Disc, Open Approach (ICD-10-PCS; principal; 2018-06-29 10:30)
PROC: 0RG20A0 Fusion of 2 or more Cervical Vertebral Joints with Interbody Fusion Device, Anterior Approach, Anterior Column, Open Approach (ICD-10-PCS; principal; 2018-06-29 10:30)
DX: M50.022 Cervical disc disorder at C5-C6 level with myelopathy (principal); F11.20 Opioid dependence, uncomplicated; M50.122 Cervical disc disorder at C5-C6 level with radiculopathy; Y04.8XXS Assault by other bodily force, sequela; I10 Essential (primary) hypertension; E66.01 Morbid (severe) obesity due to excess calories; F32.9 Major depressive disorder, single episode, unspecified; R73.03 Prediabetes; Z98.1 Arthrodesis status; Z88.6 Allergy status to analgesic agent; Z88.1 Allergy status to other antibiotic agents; Z88.0 Allergy status to penicillin; G47.00 Insomnia, unspecified; E78.00 Pure hypercholesterolemia, unspecified
CPT/HCPCS: 36415; 72040; 76001; 86850; 86900; 86901; 87081; 94664; J2405; J2765; S0077